=== PATIENT | male | born 1970 | race Caucasian/White ===

== ENCOUNTER 2020-08-09 12:39 | Emergency (ER) | payer OTHER, SELFPAY ==
[2020-08-09 15:06] VITALS: BP 154/101; PULSE 124; RESP 24; TEMP 37.8; O2SAT 94; BMI 41.0
--- NOTE | 2020-08-09 15:12 | ED.URI ---
HPI - URI/Sore Throat General Chief Complaint: Upper Respiratory Symptoms Stated Complaint: cough,-covid Time Seen by Provider: 08/09/20 15:10 History of Present Illness HPI Narrative: Patient complains of fever cough shortness of breath for 1 week He has had a negative COVID test, today he went to urgent care where they did a rapid negative test but they also did an x-ray which showed evidence of viral pneumonia consistent with COVID infection and recommended patient go to the ER for further evaluation He has had a cough productive of white sputum, the shortness of breath is worse with exertion but he is comfortable at rest, he is able to walk and speak easily and drink and eat, he does live with family at home Related Data Allergies Allergy/AdvReac Type Severity Reaction Status Date / Time Sulfa (Sulfonamide Allergy Rash Verified 08/09/20 15:05 Antibiotics) Review of Systems Review of Systems: Positive for cough fever body aches and shortness of breath Negatives are confusion, dizziness, feeling faint, chest pain, abdominal pain, nausea vomiting diarrhea, no urinary symptoms, no rash, no headache no weakness no numbness PMFSH Past Medical History Attestation statement: The following information was validated with the patient. Source: nursing notes reviewed Medical History (Updated 08/09/20 @ 16:34 by ANN Patten) Hypertension Social History Social History Advance Directives: No Advance Directives Information Provided: Yes Physical Exam Vital Signs: Vital Signs: Last Vital Signs Temp 100.0 F 08/09/20 15:33 Pulse 112 H 08/09/20 15:33 Resp 22 H 08/09/20 15:33 BP 148/99 H 08/09/20 15:33 Pulse Ox 97 08/09/20 15:33 Body Mass Index 41.0 Patient is A&O x3, no acute distress, cooperative, when he speaks his breathing rate does go up but he is able to speak full sentences without any discomfort, his maximum respiratory rate is around 20 Head is normocephalic atraumatic Pharynx is well hydrated The neck is supple A cleat chest is clear to auscultation bilaterally with symmetric full equal breath sounds, no adventitious sounds The heart no murmurs, rate and rhythm is regular Abdomen is soft nontender Extremities no edema, no calf tenderness or swelling Skin no rash Neuro no focal deficits Course Course Course Narrative: Patient's COVID test here was positive I saw the x-ray report from the urgent care which did have evidence of a viral pneumonia Patient remained stable throughout visit speaking full sentences and able to ambulate I confirmed that the patient did have assistance at home, recommended that he isolated as best possible and wear a mask, as he does not have an O2 sat meter I recommended a low threshold for return to the ER should his breathing worsen in any way MDM - URI/Sore Throat Lab Data Labs: Lab Results 08/09/20 Range/Units 15:17 Coronavirus (PCR) POSITIVE A (Negative) Influenza Type A (PCR) NEGATIVE (Negative) Influenza Type B (PCR) NEGATIVE (Negative) RSV RNA Qual (PCR) NEGATIVE (Negative) Discharge Plan Discharge Clinical Impression: Pneumonia due to 2019-nCoV Patient Disposition: Home, Self-Care Additional Instructions: Our testing confirmed COVID infection X-ray done at Urgent Care confirmed to have a viral pneumonia which can often happen with COVID We are discharging you home as you do not need oxygen or any emergency intervention at this time If breathing worsens, vomiting dehydration any worse condition or any concerns return any time for us to re-evaluate, especially for worsening shortness of breath If you are able to get an oxygen saturation meter device you should get 1 and check that several times a day, or if a family member or a neighbor has 1 of these devices you should try to borrow it and return to the ER if the numbers are getting below 90 Breathing exercises help some patients to feel much better with their breathing Go to [facility] tube and check for COVID breathing exercises There is a very short video with millions of hits by Dr.[email or web address] from [place] which clearly explains how to do the breathing exercises and it is very short video A good plan would be to start the exercises when you go home They basically involve holding her breath for a short period of time as well as after doing the breath-holding exercises rolling onto your stomach for certain period of time and then each side These exercises may help to open up the lungs and enable you to breathe a little better Use Tylenol as needed for fever Stand Alone Forms: Work/School Release Interventions: ED Discharge Assessment Last Done: 08/09/20 17:26 Discharge Date/Time: 08/09/20 17:30
[2020-08-09] MEDS: Acetaminophen 325 MG TABLET 975 MG PO (15:16)
[2020-08-09 15:33] VITALS: BP 148/99; PULSE 112; RESP 22; TEMP 37.8; O2SAT 97
[2020-08-09 16:03] LABS: Influenza A PCR NEGATIVE (Negative); Influenza B PCR NEGATIVE (Negative); Resp Syncy Virus RNA Qual PCR NEGATIVE (Negative); SARS COV2 PCR INHOUSE POSITIVE (Negative)
--- NOTE | 2020-08-09 16:20 | ED.URI ---
HPI - URI/Sore Throat General Chief Complaint: Upper Respiratory Symptoms Stated Complaint: cough,-covid Time Seen by Provider: 08/09/20 15:10 History of Present Illness HPI Narrative: Patient complains of cough fever and shortness of breath for 1 week getting worse over the weekend He went to an urgent care which did a negative rapid COVID test but also did an x-ray which showed viral pneumonia pattern typical of COVID Related Data Allergies Allergy/AdvReac Type Severity Reaction Status Date / Time Sulfa (Sulfonamide Allergy Rash Verified 08/09/20 15:05 Antibiotics) Review of Systems Review of Systems: Positive for cough, fever, body aches, mild shortness of breath Negatives are dizziness confusion or weakness chest pain abdominal pain nausea vomiting diarrhea rash, no numbness no weakness, no changes to bowel or bladder no urinary complaints Yes all other systems are reviewed and are negative [facility] Past Medical History Attestation statement: The following information was validated with the patient. [facility] Narrative: Patient did go to an urgent care prior where they did an x-ray which showed findings consistent with a viral pneumonia likely COVID Source: nursing notes reviewed Medical History (Updated 08/09/20 @ 16:34 by ANN Patten) Hypertension Social History Social History Advance Directives: No Advance Directives Information Provided: Yes Physical Exam Vital Signs: Vital Signs: Last Vital Signs Temp 100.0 F 08/09/20 15:33 Pulse 112 H 08/09/20 15:33 Resp 22 H 08/09/20 15:33 BP 148/99 H 08/09/20 15:33 Pulse Ox 97 08/09/20 15:33 Body Mass Index 41.0 General appearance no distress, speaking full sentences, A&O x3 The pupils equal round reactive to light, extraocular motions intact Pharynx is well hydrated The neck is supple Respiratory there are full symmetrical equal breath sounds, lung sounds are clear, no respiratory distress The heart rate and rhythm regular no murmur Abdomen soft nontender Extremities there is no calf tenderness or swelling there is no edema Skin no rashes neuro no focal deficit Course Course Course Narrative: Patient remained comfortable throughout visit our testing confirmed COVID infection, patient satting around 93 94%, able to speak full sentences and ambulate and is discharged home MDM - URI/Sore Throat Lab Data Labs: Lab Results 08/09/20 Range/Units 15:17 Coronavirus (PCR) POSITIVE A (Negative) Influenza Type A (PCR) NEGATIVE (Negative) Influenza Type B (PCR) NEGATIVE (Negative) RSV RNA Qual (PCR) NEGATIVE (Negative) Discharge Plan Discharge Clinical Impression: Pneumonia due to 2019-nCoV Patient Disposition: Home, Self-Care Additional Instructions: Our testing confirmed COVID infection X-ray done at Urgent Care confirmed to have a viral pneumonia which can often happen with COVID We are discharging you home as you do not need oxygen or any emergency intervention at this time If breathing worsens, vomiting dehydration any worse condition or any concerns return any time for us to re-evaluate, especially for worsening shortness of breath If you are able to get an oxygen saturation meter device you should get 1 and check that several times a day, or if a family member or a neighbor has 1 of these devices you should try to borrow it and return to the ER if the numbers are getting below 90 Breathing exercises help some patients to feel much better with their breathing Go to U tube and check for COVID breathing exercises There is a very short video with millions of hits by Dr.[email or web address] from [place] which clearly explains how to do the breathing exercises and it is very short video A good plan would be to start the exercises when you go home They basically involve holding her breath for a short period of time as well as after doing the breath-holding exercises rolling onto your stomach for certain period of time and then each side These exercises may help to open up the lungs and enable you to breathe a little better Use Tylenol as needed for fever Stand Alone Forms: Work/School Release Interventions: ED Discharge Assessment Last Done: 08/09/20 17:26 Discharge Date/Time: 08/09/20 17:30
== END 2020-08-09 17:30 | disposition home or self-care (01) ==
PROVIDERS: Nurse Practitioner Primary Care; Emergency Provider Emergency Medicine
DX: U07.1 COVID-19 (principal); J12.82 Pneumonia due to coronavirus disease 2019; I10 Essential (primary) hypertension
CPT/HCPCS: 0241U; 36415; 99283

== ENCOUNTER 2022-06-13 13:57 | Outpatient (REF) | payer OTHER, SELFPAY ==
[2022-06-13 15:08] LABS: Influenza A PCR NEGATIVE (Negative); Influenza B PCR NEGATIVE (Negative); Resp Syncy Virus RNA Qual PCR NEGATIVE (Negative); SARS COV2 PCR INHOUSE NEGATIVE (Negative)
== END 2022-06-13 13:58 | disposition home or self-care (01) ==
LOC: HO.LNP 13:57
PROVIDERS: Visit Provider Nurse Practitioner Family
DX: J01.90 Acute sinusitis, unspecified (principal); Z20.822 Contact with and (suspected) exposure to COVID-19
CPT/HCPCS: 0241U

== ENCOUNTER 2022-06-29 09:20 | Outpatient (REF) | payer OTHER, SELFPAY ==
[2022-06-29 12:02] LABS: Influenza A PCR NEGATIVE (Negative); Influenza B PCR NEGATIVE (Negative); Resp Syncy Virus RNA Qual PCR NEGATIVE (Negative); SARS COV2 PCR INHOUSE POSITIVE (Negative)
== END 2022-06-29 09:21 | disposition home or self-care (01) ==
LOC: HO.LAB 09:20
PROVIDERS: Visit Provider Nurse Practitioner Family
DX: Z20.822 Contact with and (suspected) exposure to COVID-19 (principal); R09.89 Other specified symptoms and signs involving the circulatory and respiratory systems
CPT/HCPCS: 0241U